=== PATIENT | male | born 1985 | race Hispanic/Latino ===

== ENCOUNTER 2020-01-31 11:10 | Emergency (ER) | payer SELFPAY ==
[2020-01-31 11:13] VITALS: BP 149/92; PULSE 86; RESP 20; TEMP 36.7; O2SAT 100
[2020-01-31 11:22] VITALS: BP 134/97; PULSE 83; RESP 17; O2SAT 96
[2020-01-31] MEDS: methylPREDNISolone SOD SUCC 125 MG VIAL IV PUSH (12:17)
--- NOTE | 2020-01-31 12:40 | ED.ALLEREA ---
HPI - Allergic Reaction General Chief complaint: Allergic Reaction Stated complaint: Possible allergic reaction Time Seen by Provider: 01/31/20 11:26 Source: patient Mode of arrival: ambulatory Limitations: no limitations History of Present Illness HPI narrative: Patient presents with chief complaint of wasp bite to the side of his neck. Patient states he was bitten by a bee before and had issues with anaphylaxis so he became concerned he may have the same symptoms and had his girlfriend bring him to the emergency department. Patient states that it first he was anxious and feels as if he was short of breath however he now feels better. He reports some swelling and itching to the site of the sting.Patient has not taking anything in route to the emergency department. 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 Patient denies any diaphoresis, shortness of breath, nausea, vomiting, diarrhea, changes in vision or hearing or any other symptoms. Related Data Home Medications Medication Instructions Recorded Confirmed No Home Medications 01/31/20 01/31/20 Allergies Allergy/AdvReac Type Severity Reaction Status Date / Time Bumble Bee Allergy Mild Unknown Uncoded 01/31/20 11:22 Wasp Allergy Mild Unknown Uncoded 01/31/20 11:22 Review of Systems Review of Systems: Narrative: CONSTITUTIONAL: Denies fever, chills, or sweats. EYES: Denies visual changes, redness, or discharge. ENT: Denies rhinorrhea, congestion, sore throat, or otalgia. CARDIOVASCULAR: Denies chest pain, palpitations, or edema. RESPIRATORY: Denies cough or dyspnea. GASTROINTESTINAL: Denies abdominal pain, nausea, vomiting, or diarrhea. GENITOURINARY: Denies dysuria or hematuria. SKIN: Reports rash or itching. MUSCULOSKELETAL: Denies back pain, joint pain, or myalgia. NEUROLOGIC: Denies headache, numbness, dizziness, or weakness. PSYCHIATRIC: Denies anxiety or depression. [facility] Past Medical History Medical History (Updated 01/31/20 @ 12:45 by Jp Guzmán PA-C) Bee sting allergy Social History Social History (Updated 01/31/20 @ 12:42 by Jp Guzmán PA-C) Other substance usage details: none Exam Narrative: Exam Narrative: GENERAL: Well-appearing, well-nourished, and in no acute distress. HEAD: Normocephalic, atraumatic. EYES: PERRLA and EOMI. ENT: Nares clear, no rhinorrhea or epistaxis. Mucous membranes moist. Oropharynx without tonsillar hypertrophy exudate or other lesions. Bilateral TMs pearly osei nonbulging. Airway is patent without signs of hives or erythema. NECK: Small erythematous area to the right side of the neck. No weeping or open wound noted. Supple. No adenopathy or masses. CHEST: Clear to auscultation. No respiratory distress. No wheezes rales or rhonchi HEART: Regular rate and rhythm. No murmur heard. Normal peripheral pulses. EXTREMITIES: Normal range of motion. No edema. SKIN: Warm, dry, no rash. NEURO: No focal deficits. Alert and oriented x3. PSYCH: Normal mood and affect. Course Vital Signs Vital signs: Vital Signs Temperature 98.0 F 01/31/20 11:13 Pulse Rate 86 01/31/20 11:13 Respiratory Rate 20 01/31/20 11:13 Blood Pressure 149/92 H 01/31/20 11:13 Pulse Oximetry 100 01/31/20 11:13 Temperature 98.0 F 01/31/20 11:13 Pulse Rate 83 01/31/20 11:22 Respiratory Rate 17 01/31/20 11:22 Blood Pressure 134/97 H 01/31/20 11:22 Pulse Oximetry 96 01/31/20 11:22 MDM - Allergic Reaction MDM Narrative Medical decision making narrative: Patient reports no shortness of breath or anaphylaxis. The swelling to the sting site has decreased. Discussed with the patient to take antihistamine such as Zyrtec or Benadryl as needed at home. Patient instructed to go to the pharmacy to refill his EpiPen. Patient to return to emergency department if he develops any emergent symptoms. Patient states he is ready to be discharged home at this time and
[2020-01-31 13:36] VITALS: BP 132/84; PULSE 88; RESP 12; O2SAT 100
== END 2020-01-31 13:00 | disposition home or self-care (01) ==
PROVIDERS: Emergency Provider Emergency Medicine
DX: T63.461A Toxic effect of venom of wasps, accidental (unintentional), initial encounter (principal)
CPT/HCPCS: 96374; 96375; 99284; J1200; J2930

== ENCOUNTER 2021-07-13 13:24 | Emergency (ER) | payer SELFPAY ==
[2021-07-13 14:09] VITALS: BP 135/81; PULSE 69; RESP 18; TEMP 36.5; O2SAT 100
--- NOTE | 2021-07-13 15:09 | ED.ALLEREA ---
HPI - Allergic Reaction General Chief complaint: Allergic Reaction Stated complaint: allergic reaction Time Seen by Provider: 07/13/21 14:39 Source: patient Mode of arrival: ambulatory Limitations: no limitations History of Present Illness HPI narrative: Patient is a 36-year-old male who presents for evaluation of a wasp sting to the right ankle. Patient states that he was working in the yard when the sting occurred. He did see the wasp on his ankle and was able to brush it off. He reports swelling and pain at the site. No bruising. No numbness. Patient has been ambulatory. He does report a soreness that is mild, aching in nature. Patient has a history of anaphylaxis and was without his epinephrine pen. He did go to the fire department who encouraged him to come to be evaluated. Patient reports mild lightheadedness and dizziness. No current shortness of breath or wheezing. No current hives, nausea or vomiting. Related Data Home Medications Medication Instructions Recorded Confirmed No Home Medications 01/31/20 01/31/20 Allergies Allergy/AdvReac Type Severity Reaction Status Date / Time Bumble Bee Allergy Mild Unknown Uncoded 07/13/21 14:27 Wasp Allergy Mild Unknown Uncoded 07/13/21 14:27 Review of Systems Review of Systems: CONSTITUTIONAL: Denies fever CARDIOVASCULAR: Denies chest pain RESPIRATORY: Denies cough or dyspnea. GASTROINTESTINAL: Denies abdominal pain SKIN: Denies rash, reports sting to right ankle MUSCULOSKELETAL: Denies back pain, reports right ankle pain NEUROLOGIC: Denies headache PMF Past Medical History Medical History Bee sting allergy Social History Social History (Updated 07/13/21 @ 15:12 by Jaja Hidalgo MD) Smoking status: Never smoker Alcohol intake: never Substance use: never Other substance usage details: none Living arrangements: with family Gender identity (if verbalized by the patient): Male Exam Narrative: GENERAL: Awake, alert, conversant HEAD: Normocephalic, atraumatic. EYES: PERRLA and EOMI. ENT: Nares clear, no rhinorrhea or epistaxis. Mucous membranes moist. NECK: Supple. CHEST: No respiratory distress, breathing even and non labored HEART: Regular rate, sinus rhythm ABDOMEN:Non distended, non tender EXTREMITIES: Normal range of motion. Mild edema in the right ankle. There is an envenomation site on the medial right ankle. Minimal erythema. Full range of motion without pain. Patient is ambulatory. SKIN: Warm, dry, no rash. NEURO:No focal deficits. Alert and oriented x3 Course Vital Signs Vital signs: Vital Signs Temperature 36.5 C 07/13/21 14:09 Pulse Rate 69 07/13/21 14:09 Respiratory Rate 18 07/13/21 14:09 Blood Pressure 135/81 07/13/21 14:09 Pulse Oximetry 100 07/13/21 14:09 Temperature 36.5 C 07/13/21 14:09 Pulse Rate 69 07/13/21 14:09 Respiratory Rate 18 07/13/21 14:09 Blood Pressure 135/81 07/13/21 14:09 Pulse Oximetry 100 07/13/21 14:09 MDM - Allergic Reaction MDM Narrative Medical decision making narrative: Patient presented for evaluation of the envenomation to the right ankle. At the time of assessment, ABCs are intact and vital signs are stable. No sign of significant anaphylaxis at the time of assessment. No respiratory symptoms. Patient is ambulatory without difficulty. He is neurovascularly intact and there is no sign of gross deformity or osseous injury to the right ankle or leg. Patient was given Decadron in route. When he got to the hospital, shared decision-making occurred and given the patient's history he was given intramuscular injection of epinephrine. He was also given famotidine and Benadryl. I did not image the joint as patient is ambulatory, low-dose concern for osseous injury given reported symptoms unwitnessed wasp. Patient was monitored and had no signs of rebound anaphylaxis. He was then discharged homeHelene Menjivar
[2021-07-13] MEDS: EPINEPHrine HCL INJ 1 MG/ML AMPUL 0.3 MG IM (15:16)
[2021-07-13] MEDS: diphenhydrAMINE HCl CAP 25 MG CAPSULE PO (15:17)
[2021-07-13] MEDS: FAMOTIDINE 20 MG TABLET PO (15:17)
[2021-07-13 15:58] VITALS: PULSE 98; RESP 18; O2SAT 99
== END 2021-07-13 15:59 | disposition home or self-care (01) ==
PROVIDERS: Emergency Provider Emergency Medicine
DX: T63.451A Toxic effect of venom of hornets, accidental (unintentional), initial encounter (principal); Z91.030 Bee allergy status
CPT/HCPCS: 96372; 99283; A9270; J0171

== ENCOUNTER 2022-01-11 02:15 | Emergency (ER) | payer SELFPAY ==
--- NOTE | ~2022-01-11 | CT_ITS ---
EXAMINATION: CT abdomen pelvis w con DATE: 01/11/2022 04:14 INDICATION: Right upper quadrant abdominal pain. TECHNIQUE: Spiral CT of the abdomen and pelvis was performed following intravenous injection of 100 m L Omnipaque 350. Axial, coronal and sagittal images of the abdomen and pelvis were reviewed. The do se-length product (DLP) for this examination was 470.13 mGy-cm. The exposure was tailored according to patient size (auto mA exposure control), and iterative reconstruction (ASIR) was used as additiona l dose reduction technique. There is no prior study for comparison. FINDINGS: There is nonspecific periportal edema. Gallbladder is mildly distended with indistinct gall bladder wall between the liver and the gallbladder, but other portions of the gallbladder wall appear unremarkable, no adjacent inflammation. Small amount of pericholecystic fluid not excludable. No onofre cified cholelithiasis and common bile duct is normal in caliber. Considerations include hepatitis, ac [place] or chronic cholecystitis. Spleen, adrenal glands and pancreas are unremarkable. There are 3 and 1 mm right calyceal stones. The re is also punctate 1 mm left calyceal stone. No obstructing ureteral stones. The prostate is unremar kable. Some diffuse bladder wall thickening, could indicate chronic cystitis. Acute cystitis not exc ludable. There is no retroperitoneal or pelvic lymphadenopathy. Small bilateral inguinal fat-contain ing hernias. The appendix is normal. The stomach and small bowel are unremarkable. There is expected amount of c olonic stool. No free intraperitoneal gas. The heart is normal in size. There are no pericardial or pleural effusions. The lung bases are unremarkable. There are no osteoblastic or osteolytic les ions identified. IMPRESSION: 1. Nonspecific periportal edema, ill-defined gallbladder liver interface. Some differential diagnosi s considerations include liver disease such as hepatitis, acute or chronic cholecystitis, cholangitis . Correlation could be made with liver enzymes, hepatitis panel, HIDA scan and/or ultrasound as indic ated clinically. 2. Bladder wall trabeculation and thickening could indicate chronic cystitis. 3. Small bilateral nephrolithiasis. Reviewed, dictated and finalized at location [facility] IMPRESSION: 1. Nonspecific periportal edema, ill-defined gallbladder liver interface. Some differential diagnosis considerations include liver disease such as hepatitis, acute or chronic cholecystitis, cholangitis. Correlation could be made with li daniel enzymes, hepatitis panel, HIDA scan and/or ultrasound as indicated clinical ly. 2. Bladder wall trabeculation and thickening could indicate chronic cystitis. 3. Small bilateral nephrolithiasis.
[2022-01-11] MEDS: MORPHINE SULFATE (*CRX) 4 MG/ML INJ IV PUSH ×2 (02:33→06:37)
[2022-01-11] MEDS: ONDANSETRON INJ 4 MG/2 ML VIAL IV PUSH (02:33)
--- NOTE | 2022-01-11 03:33 | PC.NURSE ---
Assumed care of patient at 03:10. Handoff received from Юлия QUINTANILLA. Refer to downtime paperwork for care prior to 03:20.
[2022-01-11 03:41] VITALS: BP 160/95; PULSE 72; RESP 16; TEMP 36.6; O2SAT 99
--- NOTE | 2022-01-11 03:41 | ED.ABDPAIN ---
HPI - Abdominal Pain General Chief Complaint: Abdominal Pain <Atilio Corea MD - Last Filed: 01/11/22 06:25> History of Present Illness HPI narrative: Patient is a 36-year-old male who presents ER with sudden onset right upper quadrant abdominal pain. She has a prolonged symptomatic is back. Associate with nausea and vomiting. No improvement with sitting in the shower. Has not had similar symptoms before. Denies fevers or chills or sweats. No urinary symptoms. <Atilio Corea MD - Last Filed: 01/11/22 06:25> Related Data Allergies/Adverse Reactions: Allergies Allergy/AdvReac Type Severity Reaction Status Date / Time No Known Allergies Allergy Verified 01/11/22 03:39 <Atilio Corea MD - Last Filed: 01/11/22 06:25> Review of Systems Review of Systems: All systems reviewed & are unremarkable except as noted in HPI and below <Atilio Corea MD - Last Filed: 01/11/22 06:25> Constitutional: Constitutional: Denies chills, Denies fever(s) and Denies weakness <Atilio Corea MD - Last Filed: 01/11/22 06:25> Cardiovascular: Cardiovascular: Denies chest pain and Denies radiating jaw, neck or arm pain <Atilio Corea MD - Last Filed: 01/11/22 06:25> Gastrointestinal: Gastrointestinal: Reports abdominal pain, Denies diarrhea, Reports nausea and Reports vomiting <Atilio Corea MD - Last Filed: 01/11/22 06:25> Genitourinary: Genitourinary: Denies hematuria, Denies dysuria and Denies urinary frequency <Atilio Corea MD - Last Filed: 01/11/22 06:25> PMFSH Past Medical History Medical History: Medical History (Updated 01/11/22 @ 06:25 by Atilio Corea MD) Healthy adult male <Atilio Corea MD - Last Filed: 01/11/22 06:25> Surgical History Surgical History: Surgical History (Updated 01/11/22 @ 03:42 by Atilio Corea MD) History of surgery on arm <Atilio Corea MD - Last Filed: 01/11/22 06:25> Social History Social History: Social History (Updated 01/11/22 @ 03:42 by Atilio Corea MD) Smoking status: Never smoker <Atilio Corea MD - Last Filed: 01/11/22 06:25> Exam Narrative: GENERAL: Uncomfortable-appearing, well-nourished, and in mild distress. HEAD: Normocephalic, atraumatic. ENT: Mucous membranes moist. CHEST: Clear to auscultation. No respiratory distress. HEART: Regular rate and rhythm. Normal peripheral pulses. ABDOMEN: Soft, tender palpation right upper quadrant with guarding, nondistended. EXTREMITIES: Normal range of motion. No edema. SKIN: Warm, dry, no rash. NEURO: Alert and oriented x3. PSYCH: Normal mood and affect. <Atilio Corea MD - Last Filed: 01/11/22 06:25> Course Course Emergency Course: Patient still with right upper quadrant tenderness with guarding. Discussed case with general surgery to consult. Will arrange for HIDA. Admit to hospitalist service. <Atilio Corea MD - Last Filed: 01/11/22 06:25> Just prior to admission patient was evaluated by Dr. Rivera general surgery patient reported his pain is feeling much improved and he would like to try and manage his symptoms at home. General surgery is comfortable with the outpatient plan recommend outpatient imaging antibiotics and pain control. Patient was given return precautions. Patient is given an order and contact information to set up his outpatient HIDA and right upper quadrant ultrasound. <Param Flor MD - Last Filed: 01/11/22 08:24> Vital Signs Vital signs: Vital Signs Temperature 36.6 C 01/11/22 03:41 Pulse Rate 72 01/11/22 03:41 Respiratory Rate 16 01/11/22 03:41 Blood Pressure 160/95 H 01/11/22 03:41 Pulse Oximetry 99 01/11/22 03:41 Temperature 36.6 C 01/11/22 06:10 Pulse Rate 58 L 01/11/22 06:10 Respiratory Rate 18 01/11/22 06:10 Blood Pressure 156/100 H 01/11/22 06:10 Pulse Oximetry 99 01/11/22 06:10 <Atilio Corea MD - Last Filed: 01/11/22 06:25>
[2022-01-11 03:56] LABS: Alanine Aminotransferase 13 U/L (4-50); Albumin Level 4.3 g/dL (3.5-5.1); Alkaline Phosphatase 73 U/L (38-126); Anion Gap 7 mmol/L (8-16); Aspartate Amino Transferase 28 U/L (17-59); Bilirubin,Total 0.2 mg/dL (0.2-1.3); Blood Urea Nitrogen 12 mg/dL (9-20); Calcium 9.2 mg/dL (8.4-10.2); Carbon Dioxide 28 mmol/L (22-30); Chloride 104 mmol/L (98-107); Estimated Glomerular Filt Rate > 60; Glucose 131 mg/dL (65-110); Lipase 84 U/L (23-300); Potassium 3.3 mmol/L (3.4-5.0); Sodium 139 mmol/L (137-145)
[2022-01-11 04:09] LABS: Hematocrit 43.3 % (42.0-52.0); Hemoglobin 14.2 g/dL (14.0-18.0); Mean Corpuscular HGB Conc 32.8 g/dl (32-36); Mean Corpuscular Hemoglobin 27.7 pg (26-34); Mean Corpuscular Volume 84.6 fl (80-100); Mean Platelet Volume 10.9 fl (7.4-10.4); Platelet Count Result 264 k/mm3 (150-375); Red Blood Count 5.12 M/mm3 (4.6-6.20); Red Cell Distribution Width 13.8 % (11.5-14.5); White Blood Count 12.6 K/mm3 (4.5-10.0)
[2022-01-11 06:10] VITALS: BP 156/100; PULSE 58; RESP 18; TEMP 36.6; O2SAT 99
--- NOTE | 2022-01-11 07:26 | PC.NURSE ---
spoke with NM states pt. has to be off pain medication and NPO until 1230. states pt. can have IVBP Tylenol
--- NOTE | 2022-01-11 08:00 | PC.NURSE ---
unable to Chart pt. VS. VS as follows 98 HR, 14 RR, 98% pulse oxygen, 148/88 BP
--- NOTE | 2022-01-11 08:43 | PM.CNGS ---
Assessment and Plan Assessment and plan (1) Acute cholecystitis: Code(s): K81.0 - Acute cholecystitis Status: Acute Assessment and Plan: exam benign, symptoms resolved, home c po abx, analgesia, will need RUQ U/S and HIDA for further workup as outpt, low fat diet, f/u as outpt after testing History of Present Illness Consult details Consult date: 01/11/22 Reason for consult: abdominal pain Requesting physician: Atilio Corea MD Narrative: The patient is a 36-year-old male presenting to the emergency department complaining of severe right upper quadrant, epigastric abdominal pain. Pt reorts the pain has been ongoing for the last few days, however acutely worsened last night. The patient reports associated nausea, anorexia, diarrhea. The patient reports before the last few days he has never experienced these symptoms before. The patient reports that the symptoms are exacerbated by eating. Upon seeing the patient in the emergency department, he has received pain medication and reports his symptoms are largely resolved at this time. Review of Systems Review of Systems: All systems reviewed & are unremarkable except as noted in HPI and below Constitutional: Constitutional: Reports anorexia, Denies body ache(s), Denies chills, Reports fatigue, Denies fever(s), Denies increased appetite, Denies lethargy, Reports poor appetite, Denies weakness, Denies weight gain and Denies weight loss Eyes: Eyes: Reports no additional eye complaints ENT: Reports system reviewed and no additional complaints, except as documented Cardiovascular: Cardiovascular: Reports no additional cardiovascular complaints Respiratory: Respiratory: Reports no additional respiratory complaints Gastrointestinal: Gastrointestinal: Reports as per HPI, Reports abdominal pain, Reports bloating, Reports GI cramping, Reports early satiety, Reports diarrhea, Reports nausea and Denies vomiting Genitourinary: Genitourinary: Reports no additional male genitourinary complaints Musculoskeletal: Musculoskeletal: Reports no additional musculoskeletal complaints Integumentary/Breasts: Skin/Breast: Reports system reviewed and no additional complaints, except as docu Neurologic: Reports system reviewed and no additional complaints, except as documented Psychiatric: Psychiatric: Reports no additional psychiatric complaints Endocrine: Endocrine: Reports no additional endocrine complaints Hematologic/Lymphatic: Hematologic/Lymphatic: Reports no additional hematologic/lymphatic complaints Allergic/Immunologic: Allergic/Immunologic: Reports no additional allergic/immunologic complaints PMFSH Past Medical History Medical History Healthy adult male Surgical History Surgical History History of surgery on arm Social History Social History Smoking status: Never smoker Comments FH - pt denies any known biliary dz Meds Home Medications and Allergies Home Medications Medication Instructions Recorded Confirmed Type ciprofloxacin HCl 750 mg PO Q12H 10 Days #20 tablet 01/11/22 Rx oxycodone-acetaminophen 1 tablet PO Q4H PRN #10 tablet 01/11/22 Rx Allergies Allergy/AdvReac Type Severity Reaction Status Date / Time No Known Allergies Allergy Verified 01/11/22 03:39 Vital Signs Vital Signs - 24 hr 01/11/22 03:41 01/11/22 06:10 Temperature 36.6 C 36.6 C Pulse Rate 72 58 L Respiratory Rate 16 18 Blood Pressure 160/95 H 156/100 H Pulse Oximetry 99 99 Exam Const: General: cooperative, comfortable and no acute distress Nutritional Appearance: average body habitus Orientation/consciousness: patient oriented x3 Limitations: no limitations HENMT: Head: normal to inspection, normocephalic and atraumatic Ears: hearing grossly normal bilaterally General nose exam: Normal exter
== END 2022-01-11 08:18 | disposition home or self-care (01) ==
PROVIDERS: Emergency Provider Emergency Medicine
DX: K81.0 Acute cholecystitis (principal)
CPT/HCPCS: 36415; 74177; 80053; 83690; 85027; 96374; 96375; 96376; 99284; J2270; J2405; Q9967

== ENCOUNTER 2022-12-27 02:49 | Observation (INO) | payer BC, SELFPAY ==
[2022-12-27] VITALS (8 sets, daily range): BP systolic 115–181; BP diastolic 62–93; PULSE 58–83; RESP 16–20; TEMP 36.2–36.8; O2SAT 98–100; BMI 24.9
--- NOTE | ~2022-12-27 | NM_ITS ---
EXAMINATION: NM hepatobiliary w pharm DATE: 12/27/2022 14:58 INDICATION: Right upper quadrant abdominal pain COMPARISON: CT abdomen pelvis and right upper quadrant ultrasound TECHNIQUE: 5.077 mCi Tc-99m mebrofenin (Choletec) was administered intravenously. Scintigraphic imag es of the abdomen were obtained for one hour. 2 mg of morphine was administered by slow IV push and s cintigrams were obtained from an additional 30 minutes. FINDINGS: There is normal clearance of radiotracer from the blood pool. There is homogeneous tracer uptake by t he liver. Activity progresses to the common bile duct by 10 minutes and with small bowel activity ev ident at 15 minutes and increasing over the following 60 minutes. Following morphine injection there is additional accumulation of small bowel activity but no evident filling of the gallbladder which al aneta with findings on prior CT and ultrasound would be consistent with acute cholecystitis. There is s ome reflux of activity into the stomach, small portion of which occurred during the first 30 minutes and the majority the interval prior to the morphine administration. IMPRESSION: 1. No excessive activity into the gallbladder which along with findings on prior ultrasound and CT w ould be consistent with acute cholecystitis. Reviewed, dictated and finalized at location A. O VISUAL ENGINEER IMPRESSION: 1. No excessive activity into the gallbladder which along with findings on hilaria or ultrasound and CT would be consistent with acute cholecystitis.
--- NOTE | ~2022-12-27 | US_ITS ---
Limited Abdominal Sonogram: Real-time sonographic imaging of the right upper quadrant was performed. Clinical History: Right upper quadrant pain Findings: The liver appears normal with no evidence of mass lesion or bile duct dilatation. Main por nils vein demonstrates normal direction of flow. The gallbladder is partially distended, and contains echogenic, shadowing gallstones.. Gallbladder wall is minimally thickened at 4 mm. The common bile du ct measures 5 mm. The visualized pancreas, aorta, and IVC are unremarkable. Impression: Cholelithiasis. Minimal gallbladder wall thickening is present, but there is negative sonographic Laguna's sign. Cons ider HIDA scan to further evaluate for acute cholecystitis, as indicated. Reviewed, dictated and finalized at location . MAKER Impression: Cholelithiasis. Minimal gallbladder wall thickening is present, but there is negative sonograph ic Laguna's sign. Consider HIDA scan to further evaluate for acute cholecystiti s, as indicated.
--- NOTE | ~2022-12-27 | CT_ITS ---
CT Abdomen and Pelvis with contrast. History: Abdominal pain. Spiral CT of the abdomen and pelvis was performed after the administration of intravenous contrast. 1 00 cc of Omnipaque 350 was administered intravenously without complication. Dose reduction technique was used on this scan by utilizing automated exposure control and iterative reconstruction technique. The dose-length product (DLP) was 350.11 mGy-cm. COMPARISON: 01/11/2022 Findings: Scans through the lung bases demonstrate mild atelectatic change. The liver, spleen, pancreas, adrenals and kidneys are within normal limits. There is mild gallbladder wall thickening, nonspecific. No evidence of aortic aneurysm. No lymphadenopathy is seen. There is no evidence of bowel obstruction. There is no evidence to suggest acute appendicitis or dive rticulitis. Images through the pelvis were performed. Probable urinary bladder wall thickening noted, especially along the right side. Prostate gland and seminal vesicles are unremarkable. No ascites is seen. Stable calcified or ossified lesion within the spinal canal at the L1 level (axial images 46-49). Impression: Mild gallbladder wall thickening, nonspecific. Urinary bladder wall thickening, especially along the right side, essentially stable from prior exam. Given stability, this could indicate chronic cystitis or other chronic inflammatory process. Neoplas m unlikely given patient age. Stable densely calcified or ossified lesion within the spinal canal at the L1 level. This is also pre sumably benign given stability over time. Additional workup can be pursued if indicated. Reviewed, dictated and finalized at location M. NG SEWER Impression: Mild gallbladder wall thickening, nonspecific. Urinary bladder wall thickening, especially along the right side, essentially s table from prior exam. Given stability, this could indicate chronic cystitis or other chronic inflammatory process. Neoplasm unlikely given patient age. Stable densely calcified or ossified lesion within the spinal canal at the L1 l evel. This is also presumably benign given stability over time. Additional work up can be pursued if indicated.
[2022-12-27] MEDS: MORPHINE SULFATE (*CRX) 4 MG/ML INJ IV PUSH ×3 (04:11→19:50)
[2022-12-27 04:13] LABS: Basophils Absolute Auto 0.1 K/mm3 (0.0-0.1); Basophils Percent Auto 0.6 % (0.2-1.2); Eosinophils Absolute Auto 0.5 K/mm3 (0-0.3); Eosinophils Percent Auto 3.1 % (0-4.4); Hematocrit 46.9 % (42.0-52.0); Hemoglobin 14.7 g/dL (14.0-18.0); Immature Granulocyte Absolute 0.08 K/mm3 (0.00-0.031); Immature Granulocyte Percent A 0.5 % (0-0.5); Lymphocytes Percent Auto 14.2 % (18.3-44.2); Mean Corpuscular HGB Conc 31.3 g/dl (32-36); Mean Corpuscular Hemoglobin 27.1 pg (26-34); Mean Corpuscular Volume 86.5 fl (80-100); Mean Platelet Volume 10.1 fl (7.4-10.4); Monocytes Absolute Auto 1.1 K/mm3 (0.1-0.6); Monocytes Percent Auto 6.9 % (2.6-8.5); Neutrophils Absolute Auto 11.5 K/mm3 (1.3-6.7); Neutrophils Percent Auto 74.7 % (45.5-73.1); Platelet Count Result 335 k/mm3 (150-375); Red Blood Count 5.42 M/mm3 (4.6-6.20); Red Cell Distribution Width 14.5 % (11.5-14.5); White Blood Count 15.5 K/mm3 (4.5-10.0)
[2022-12-27] MEDS: METOCLOPRAMIDE HCL INJ 10 MG/2 ML VIAL IV PUSH (04:14)
[2022-12-27] MEDS: diphenhydrAMINE HCl INJ 50 MG/ML VIAL 25 MG IV PUSH (04:15)
[2022-12-27 04:24] LABS: Alanine Aminotransferase 14 U/L (6-50); Albumin Level 4.1 g/dL (3.5-5.1); Alkaline Phosphatase 76 U/L (38-126); Anion Gap 5 mmol/L (8-16); Aspartate Amino Transferase 25 U/L (17-59); Bilirubin,Total 0.3 mg/dL (0.2-1.3); Blood Urea Nitrogen 20 mg/dL (9-20); Calcium 8.7 mg/dL (8.4-10.2); Carbon Dioxide 34 mmol/L (22-30); Chloride 102 mmol/L (98-107); Estimated CRCL calculation 84 ml/min; Estimated Glomerular Filt Rate > 60; Glucose 119 mg/dL (65-110); Lipase 196 U/L (23-300); Potassium 3.7 mmol/L (3.4-5.0); Sodium 141 mmol/L (137-145)
[2022-12-27 04:25] LABS: Appearance Urine Clear (Clear); Bilirubin Urine Negative (Negative); Blood Urine Negative (Negative); Color Urine Yellow (Yellow); Glucose Urine UA Negative (Negative); Ketones Urine Negative (Negative); Leukocyte Esterase Ur Negative LEU/UL (Negative); Nitrate Urine Negative (Negative); Protein Urine Negative (Negative); Specific Grav Ur 1.025 (1.001-1.035); Urobilinogen Urine 0.2 mg/dL (<2.0)
[2022-12-27 04:45] LABS: Add Urine Microscopic? NO
--- NOTE | 2022-12-27 07:15 | ED.ABDPAIN ---
HPI - Abdominal Pain General Chief Complaint: Abdominal Pain <Janna Iniguez MD - Last Filed: 12/28/22 12:35> Stated Complaint: vomiting <Janna Iniguez MD - Last Filed: 12/28/22 12:35> Time Seen by Provider: 12/27/22 03:36 <Janna Iniguez MD - Last Filed: 12/28/22 12:35> History of Present Illness HPI narrative: Patient states that last night he has been having right upper quadrant pain, he has had symptoms like this in the past, he had declined surgery in the past. Also reports nausea <Janna Iniguez MD - Last Filed: 12/28/22 12:35> Related Data Home Medications: Home Medications Medication Instructions Recorded Confirmed No Home Medications 01/31/20 12/27/22 <Janna Iniguez MD - Last Filed: 12/28/22 12:35> Allergies/Adverse Reactions: Allergies Allergy/AdvReac Type Severity Reaction Status Date / Time Bumble Bee Allergy Mild Unknown Uncoded 12/27/22 15:31 Wasp Allergy Mild Unknown Uncoded 12/27/22 15:31 <Janna Iniguez MD - Last Filed: 12/28/22 12:35> Review of Systems Review of Systems: CONST: No fever. HEENT: No sore throat C/V: No chest pain RESP: No cough GI: Reports abdominal pain, nausea, vomiting : No dysuria. M/S: No joint pain. SKIN: No rash. NEURO: [No headache or focal numbness or weakness] PSYCH: [No depression] <Janna Iniguez MD - Last Filed: 12/28/22 12:35> [facility] Past Medical History Medical History: Medical History (Updated 12/27/22 @ 21:14 by Shasha Rutledge PA-C) Bee sting allergy <Janna Iniguez MD - Last Filed: 12/28/22 12:35> Surgical History Surgical History: Surgical History History of surgery on arm (04/2012) Repair of a large left forearm laceration including ulnar nerve and muscle fascia repair per Dr. Greene. <Janna Iniguez MD - Last Filed: 12/28/22 12:35> Family History Family History: Family History Other Unknown family medical history <Janna Iniguez MD - Last Filed: 12/28/22 12:35> Social History Social History: Social History (Updated 12/27/22 @ 21:13 by Shasha Rutledge PA-C) Social History: Surrogate medical decision maker: Cheryl Bernal, mother. Code status: Full code. Smoking status: Current every day smoker Tobacco type: cigarettes Second hand tobacco smoke exposure: No Alcohol intake: never Substance use: current Substance use type: marijuana Last use: 12/26/22 Lack of Transportation: No Lack of Food: Never True Current Housing: I Have Housing Concerned About Future Housing: No Difficulty Paying Gas/Electric Bills: No Difficulty Paying for Meds: No Currently Unemployed: No Education: High School Diploma/GED Difficulty w/ Childcare or Family Care: No Spiritual care concerns: No <Janna Iniguez MD - Last Filed: 12/28/22 12:35> Exam Narrative: EXAMINATION OF ORGAN SYSTEMS/BODY AREAS: Constitutional: Vital signs per nursing GENERAL:[No acute distress, non-toxic appearing.] HEAD: Normal with no signs of head trauma. EYES: EOMI, conjunctiva normal ENT: Hearing grossly intact LUNGS: Nonlabored breathing. HEART: [Regular rate and rhythm] ABD: [Soft], [tender to palpation RUQ] EXT: Normal range of motion SKIN: [No rashes or lesions.] NEURO: [Alert and oriented x 3. No gross focal sensory or strength deficits.] PSYCH: Normal affect <Janna Iniguez MD - Last Filed: 12/28/22 12:35> Course Course Emergency Course: Persistent right upper quadrant abdominal pain on exam. Given imaging findings patient will be admitted to hospitalist service for HIDA scan to further evaluate for cholecystitis. Patient be kept n.p.o. He is aware of diagnosis and treatment plan. <Atilio Corea MD - Last Filed: 12/27/22 11:48> Vital Signs Vital signs: Vital Signs Temperature 98.3 F 12/27/22 02:52 Pulse Rate 62 12/27/22 02:52 Respira
--- NOTE | 2022-12-27 09:00 | PC.NURSE ---
Nuclear medicine called and they stated do not give this patient any medications and make this patient NPO until after his test
[2022-12-27 10:46] LABS: Influenza A QL RT-PCR Negative (Negative); Influenza B QL RT-PCR Negative (Negative); SARS-CoV-2 RNA PCR Negative
--- NOTE | 2022-12-27 12:11 | PC.NURSE ---
Pt to nuclear medicine
--- NOTE | 2022-12-27 13:30 | PM.IMHP ---
H&P: HPI History of Present Illness Date/Time: 12/27/22 13:30 Chief Complaint: Abdominal pain. Narrative: This is a very pleasant, previously healthy 37-year-old male who presented to the emergency department from home for evaluation of abdominal pain. Patient provides the following history. Last evening he had some Czech fries with dinner and as the evening progressed he developed a squeezing pain in the right upper quadrant radiating somewhat through to the back associated with feelings of bloating, nausea, and several episodes of emesis. He has had similar symptoms in the past, typically with fatty or fried foods, but he has only had such severe pain on a couple of occasions. He was given a dose of morphine and metoclopramide in the emergency department his pain has drastically improved. He denies fever, chills, sweats, hematemesis, diarrhea, melena, and hematochezia. No chest pain or shortness of breath. He has been afebrile since arrival to the hospital with stable vital signs. Pertinent labs included WBC of 15.5 and normal LFTs and lipase. CT of the abdomen pelvis showed mild gallbladder wall thickening and other chronic findings. HIDA scan is consistent with acute cholecystitis. He is being admitted in this setting for pain control, antibiotics, and surgery consult. Review of Systems Review of Systems: Twelve systems were reviewed and are negative except for as per HPI. [facility], LATER [facility] Past Medical History Medical History (Updated 12/27/22 @ 21:14 by Shasha Rutledge PA-C) Bee sting allergy Surgical History Surgical History History of surgery on arm (04/2012) Repair of a large left forearm laceration including ulnar nerve and muscle fascia repair per Dr. Greene. Family History Family History Other Unknown family medical history Social History Social History (Updated 12/27/22 @ 21:13 by Shasha Rutledge PA-C) Social History: Surrogate medical decision maker: Cheryl Bernal, mother. Code status: Full code. Smoking status: Current every day smoker Tobacco type: cigarettes Second hand tobacco smoke exposure: No Alcohol intake: never Substance use: current Substance use type: marijuana Last use: 12/26/22 Lack of Transportation: No Lack of Food: Never True Current Housing: I Have Housing Concerned About Future Housing: No Difficulty Paying Gas/Electric Bills: No Difficulty Paying for Meds: No Currently Unemployed: No Education: High School Diploma/GED Difficulty w/ Childcare or Family Care: No Spiritual care concerns: No Meds Home Medications and Allergies Home Medications Medication Instructions Recorded Confirmed Type No Home Medications 01/31/20 12/27/22 History Allergies Allergy/AdvReac Type Severity Reaction Status Date / Time Bumble Bee Allergy Mild Unknown Uncoded 12/27/22 15:31 Wasp Allergy Mild Unknown Uncoded 12/27/22 15:31 Vital Signs Vital Signs - 24 hr 12/27/22 02:52 12/27/22 05:49 12/27/22 05:52 Temperature 98.3 F Pulse Rate 62 67 Respiratory Rate 20 16 Blood Pressure 181/90 H 146/93 H Pulse Oximetry 98 100 Oxygen Delivery Room Air 12/27/22 11:25 Temperature Pulse Rate 83 Respiratory Rate 18 Blood Pressure 136/86 Pulse Oximetry 99 Oxygen Delivery Exam Narrative: General: Mildly ill-appearing male supine in bed. Weight: 65.8 kg. BMI: 24.9. HEENT: PERRL, EOMI. Sclera anicteric. Tacky mucous membranes. Neck: Supple. Respiratory: Lungs are clear to auscultation bilaterally. Cardiovascular: Regular rate and rhythm with S1-S2. Gastrointestinal: Abdomen is soft and nondistended with positive bowel sounds. He is tender to palpation the right upper quadrant. Skin: Warm and dry. No rash or lesions on limited exam. Extremities: No cyanosis, clubbing, or edema. Radial and pedal pulses intact. Neurologic
[2022-12-27] MEDS: MORPHINE SULFATE (*CRX) 2 MG/ML INJ IV PUSH ×2 (14:55→23:23)
--- NOTE | 2022-12-27 15:20 | ADMGEN ---
This patient, Clinton Bernal, was admitted to Medical Room 243-01. Patient/family oriented to hospital policies and general routines including ID bracelet, bed and alarms, visiting hours, pain management, procedures, bathroom and other care routines, personal items, smoking policy, room service/diet, and visiting hours. Information on how to activate the Rapid Response Team has been discussed. Patient/Family are encouraged to report perceived risks to care and to ask questions if they do not understand what they are told or what they should do.
--- NOTE | 2022-12-27 15:25 | WPDGICN ---
Assessment and Plan Assessment and plan (1) Right upper quadrant abdominal pain: Code(s): R10.11 - Right upper quadrant pain Status: Acute Assessment and Plan: this is consistent with GB disease, most likely cholecystitis- pending hida scan will ask surgery to evaluate noted normal bile duct size and also normal liver enzymes (2) Nausea and vomiting in adult: Code(s): R11.2 - Nausea with vomiting, unspecified Status: Acute Assessment and Plan: npo for now antiemetics prn (3) Acute cholecystitis: Code(s): K81.0 - Acute cholecystitis Status: Acute Assessment and Plan: surgery to see (4) Cholelithiasis: Code(s): K80.20 - Calculus of gallbladder without cholecystitis without obstruction Status: Acute (5) Leukocytosis: Code(s): D72.829 - Elevated white blood cell count, unspecified Status: Acute GI Consult Note Consult date/time: 12/27/22 15:25 Reason for consult: n/v, ruq pain, cholelithiasis HPI: Clinton Bernal is a 37 year old male with previous history of cholelithiasis who came to the emergency department complaining of severe right upper quadrant with epigastric abdominal pain along with nausea and vomiting, this started after ate estonian fries. He had similar episode about 1 year ago, evaluated by surgery after found to have cholelithiasis and advised to have HIDA scan and return for follow-up but he did not. He says that after changed his diet was better most of the year until now. CT scan showed cholelithiasis and GB wall thickening. Finally he just had HIDA scan which is pending. Review of Systems Constitutional: Constitutional: Denies body ache(s) Eyes: Eyes: Denies blurry vision ENT: Reports Normal hearing present Cardiovascular: Cardiovascular: Denies chest pain Respiratory: Respiratory: Denies cough Gastrointestinal: Gastrointestinal: Reports abdominal pain, Reports nausea and Reports vomiting Genitourinary: Genitourinary: Denies hematuria Musculoskeletal: Musculoskeletal: Denies myalgias Integumentary/Breasts: Skin/Breast: Denies rash Neurologic: Denies Abnormal speech present Psychiatric: Psychiatric: Denies anxiety [facility] Past Medical History Medical History (Updated 12/27/22 @ 15:30 by Chriss Tilley MD) Bee sting allergy Leukocytosis Nausea and vomiting in adult Surgical History Surgical History (Updated 12/27/22 @ 13:16 by Shasha Rutledge PA-C) History of surgery on arm (04/2012) Repair of a large left forearm laceration including ulnar nerve and muscle fascia repair per Dr. Greene. Social History Social History (Updated 12/27/22 @ 13:16 by Shasha Rutledge PA-C) Social History: Surrogate medical decision maker: Code status: Full code. Alcohol intake: never Substance use: never Other substance usage details: none Meds Home Medications and Allergies Home Medications Medication Instructions Recorded Confirmed Type No Home Medications 01/31/20 01/31/20 History ciprofloxacin HCl 750 mg tablet 750 mg PO Q12H 10 days #20 tabs 01/11/22 Rx oxycodone-acetaminophen 5 mg-325 1 tablet PO Q4H PRN pain #10 tabs 01/11/22 Rx mg tablet Allergies Allergy/AdvReac Type Severity Reaction Status Date / Time Bumble Bee Allergy Mild Unknown Uncoded 12/27/22 15:31 Wasp Allergy Mild Unknown Uncoded 12/27/22 15:31 Vital Signs Vital Signs - 24 hr 12/27/22 02:52 12/27/22 05:49 12/27/22 05:52 Temperature 98.3 F Pulse Rate 62 67 Respiratory Rate 20 16 Blood Pressure 181/90 H 146/93 H Pulse Oximetry 98 100 Oxygen Delivery Room Air 12/27/22 11:25 Temperature Pulse Rate 83 Respiratory Rate 18 Blood Pressure 136/86 Pulse Oximetry 99 Oxygen Delivery Exam Const: General: no acute distress HENMT: Face/Nose/Sinus: Normal nares present Eyes: Sclera: sclerae normal Neck: Neck: supple Resp: Auscultation: clear to auscultation
[2022-12-27] MEDS: SODIUM CHLORIDE 0.9% IV 1,000 ML 125 ML IV CONT ×2 (16:05→23:23)
[2022-12-27] MEDS: ONDANSETRON INJ 4 MG/2 ML VIAL IV PUSH ×2 (16:07→23:23)
--- NOTE | 2022-12-27 18:07 | WPDCN ---
Assessment and Plan Assessment and plan (1) Acute cholecystitis due to biliary calculus: Code(s): K80.00 - Calculus of gallbladder with acute cholecystitis without obstruction Status: Acute Assessment and Plan: Patient has been admitted to the medical service with acute cholecystitis secondary to cholelithiasis. She has been started on IV antibiotics and will keep him NPO except for some ice chips this evening. Will repeat his labs in the morning and if appropriate he could possibly have a laparoscopic cholecystectomy possible open cholecystectomy tomorrow. HPI Data of Consult Date/Time: 12/27/22 18:07 Requesting Physician: Joe Coon MD Primary Care Provider: CROCHETER HAND PHYSICIAN Consult Narrative Reason for consult: Acute cholecystitis secondary to cholelithiasis Narrative: Clinton Bernal is a 37 year old male who has had about a 1 year history of intermittent right upper quadrant abdominal pain sometimes associated with eating. He had stayed on a low-fat diet and reduce his symptoms but last evening he ate some Finnish fries and had severe pain in the right upper quadrant. He denies any nausea vomiting. He has been having some loose stools after eating and abdominal bloating after eating. Workup in emergency [place] [id number]. Liver enzymes are normal. CT scan abdomen pelvis showed distended gallbladder with some mild gallbladder wall thickening. Abdominal ultrasound showed mild thickening of the gallbladder wall to 4mm and gallstones. HIDA scan was performed showing no filling of the gallbladder [id number]. This is all consistent with acute cholecystitis radiographically. Review of Systems Review of Systems: The remainder of the review of systems to include constitutional, HEENT, cardiovascular, respiratory, GI, , integumentary, musculoskeletal, endocrine, immunologic, hematologic, psychiatric, and neurologic are all negative except for which is mentioned above in the HPI. [facility] Past Medical History Medical History Bee sting allergy Leukocytosis Nausea and vomiting in adult Surgical History Surgical History History of surgery on arm (04/2012) Repair of a large left forearm laceration including ulnar nerve and muscle fascia repair per Dr. Greene. Family History Family History Other Unknown family medical history Social History Social History Social History: Surrogate medical decision maker: Code status: Full code. Smoking status: Current every day smoker Tobacco type: cigarettes Second hand tobacco smoke exposure: No Alcohol intake: never Substance use: current Substance use type: marijuana Last use: 12/26/22 Lack of Transportation: No Lack of Food: Never True Current Housing: I Have Housing Concerned About Future Housing: No Difficulty Paying Gas/Electric Bills: No Difficulty Paying for Meds: No Currently Unemployed: No Education: High School Diploma/GED Difficulty w/ Childcare or Family Care: No Spiritual care concerns: No Meds Home Medications and Allergies Home Medications Medication Instructions Recorded Confirmed Type No Home Medications 01/31/20 12/27/22 History Allergies Allergy/AdvReac Type Severity Reaction Status Date / Time Bumble Bee Allergy Mild Unknown Uncoded 12/27/22 15:31 Wasp Allergy Mild Unknown Uncoded 12/27/22 15:31 Vital Signs Vital Signs - 24 hr 12/27/22 02:52 12/27/22 05:49 12/27/22 05:52 Temperature 36.8 C Pulse Rate 62 67 Respiratory Rate 20 16 Blood Pressure 181/90 H 146/93 H Pulse Oximetry 98 100 Oxygen Delivery Room Air 12/27/22 11:25 12/27/22 15:20 Temperature 36.2 C L Pulse Rate 83 70 Respiratory Rate 18 18 Bl
[2022-12-28 03:56] VITALS: BP 120/66; PULSE 78; RESP 17; TEMP 36.7; O2SAT 100
[2022-12-28] MEDS: MORPHINE SULFATE (*CRX) 2 MG/ML INJ IV PUSH ×2 (05:10→07:59)
[2022-12-28] MEDS: ONDANSETRON INJ 4 MG/2 ML VIAL IV PUSH (05:11)
[2022-12-28 05:43] LABS: Basophils Absolute Auto 0.1 K/mm3 (0.0-0.1); Eosinophils Absolute Auto 0.4 K/mm3 (0-0.3); Hematocrit 41.2 % (42.0-52.0); Hemoglobin 12.7 g/dL (14.0-18.0); Immature Granulocyte Absolute 0.02 K/mm3 (0.00-0.031); Immature Granulocyte Percent A 0.3 % (0-0.5); Lymphocytes Absolute Auto 2.13 K/mm3 (0.9-3.2); Lymphocytes Percent Auto 30.6 % (18.3-44.2); Mean Corpuscular HGB Conc 30.8 g/dl (32-36); Mean Corpuscular Hemoglobin 26.9 pg (26-34); Mean Corpuscular Volume 87.3 fl (80-100); Mean Platelet Volume 9.9 fl (7.4-10.4); Monocytes Absolute Auto 0.5 K/mm3 (0.1-0.6); Monocytes Percent Auto 7.5 % (2.6-8.5); Neutrophils Absolute Auto 3.8 K/mm3 (1.3-6.7); Neutrophils Percent Auto 54.6 % (45.5-73.1); Platelet Count Result 260 k/mm3 (150-375); Red Blood Count 4.72 M/mm3 (4.6-6.20); Red Cell Distribution Width 14.6 % (11.5-14.5)
[2022-12-28 05:54] LABS: Alanine Aminotransferase 43 U/L (6-50); Albumin Level 3.5 g/dL (3.5-5.1); Alkaline Phosphatase 120 U/L (38-126); Anion Gap 1 mmol/L (8-16); Aspartate Amino Transferase 141 U/L (17-59); Bilirubin,Total 0.7 mg/dL (0.2-1.3); Blood Urea Nitrogen 10 mg/dL (9-20); Carbon Dioxide 29 mmol/L (22-30); Chloride 104 mmol/L (98-107); Estimated CRCL calculation 94 ml/min; Estimated Glomerular Filt Rate > 60; Glucose 93 mg/dL (65-110); Sodium 134 mmol/L (137-145)
[2022-12-28] MEDS: SODIUM CHLORIDE 0.9% IV 1,000 ML 125 ML IV CONT (06:07)
[2022-12-28 10:00] VITALS: BP 116/73; PULSE 56; RESP 18; TEMP 36.4; O2SAT 99
--- NOTE | 2022-12-28 14:27 | PM.DS ---
DS: Admitting Diagnosis Discharge Date 12/28/22 Admitting Diagnosis Acute cholecystitis DS: Summary Hospital Course Hospital Course: Patient signed out against medical advice on 12/28/2022 prior to my evaluation. Was informed by RN at approximately 12:00 p.m. that the patient signed AMA papers and departed from the facility. Time Spent with Patient Time attestation: Total time spent providing and/or coordinating discharge services: DS: Data Data Completed and Pending Labs on day of discharge: Labs from last 24 hours 12/28/22 12/28/22 12/28/22 05:07 05:07 05:07 WBC 7.0 RBC 4.72 Hgb 12.7 L Hct 41.2 L MCV 87.3 MCH 26.9 MCHC 30.8 L RDW 14.6 H Plt Count 260 MPV 9.9 Immature Gran % (Auto) 0.3 Neut % (Auto) 54.6 Lymph % (Auto) 30.6 Bledsoe % (Auto) 7.5 Eos % (Auto) 6.0 H Baso % (Auto) 1.0 Lymph # (Auto) 2.13 Bledsoe # (Auto) 0.5 Eos # (Auto) 0.4 H Baso # (Auto) 0.1 Abs Immat Gran (auto) 0.02 Absolute Neuts (auto) 3.8 Absolute Nucleated RBC 0.0 Nucleated RBC % 0.0 Sodium 134 L Potassium 4.0 Chloride 104 Carbon Dioxide 29 Anion Gap 1 L BUN 10 D Creatinine 0.80 Estim Creat Clear Calc 94 Estimated GFR > 60 Glucose 93 Calcium 8.0 L Total Bilirubin 0.7 AST 141 H ALT 43 Alkaline Phosphatase 120 Total Protein 6.0 L Albumin 3.5 Blood Type A Positive Antibody Screen Negative Discharge Plan Discharge Consulting providers: Neftali Smith ; Chriss Tilley Patient Disposition: Left Against Medical Advice Patient Instructions: How to Stop Smoking (DC) Discharge Medications: No Action No Home Medications Date of admission: 12/27/22 09:45 Primary Care Provider: PHYSICIAN,VENDOR MANAGEMENT ASSOCIATE Admitting Provider: Joe Coon Attending physician on admission: Chuyita Garcia Condition: Stable
== END 2022-12-28 11:37 | disposition left against medical advice (07) ==
LOC: ANHED 11:48 → ANH3MEDSUR 12:13 → ANH2MED 12:34
PROVIDERS: Emergency Medicine; Surgery; Admitting Provider Internal Medicine; Emergency Provider Emergency Medicine; Visit Provider Physician Assistant
DX: K80.00 Calculus of gallbladder with acute cholecystitis without obstruction (principal); F17.210 Nicotine dependence, cigarettes, uncomplicated; Z20.822 Contact with and (suspected) exposure to COVID-19
CPT/HCPCS: 36415; 74177; 76705; 78227; 80053; 81003; 83690; 85025; 86850; 86900; 86901; 87636; 96361; 96365; 96366; 96375; 96376; 99285; A9537; G0378; J1200; J2270; J2405; J2543; J2765; J7030; Q9967

== ENCOUNTER 2023-05-17 11:11 | Emergency (ER) | payer BC, SELFPAY ==
[2023-05-17 11:22] VITALS: BP 127/76; PULSE 74; RESP 18; TEMP 37.4; O2SAT 100
--- NOTE | 2023-05-17 11:46 | ED.SKABFB ---
HPI - Skin/Abscess/Foreign Bdy General Chief complaint: Skin/Abscess/Foreign Body Stated complaint: insect bite Time Seen by Provider: 05/17/23 11:39 Source: patient and RN notes reviewed Mode of arrival: ambulatory Limitations: no limitations History of Present Illness HPI narrative: Patient presents today complaining of redness, itching, and swelling to his right forearm since last night. He is unsure if he got bit by an insect [place] or if the symptoms are due to scratching. He has tried some [id number] topical cream without much relief. Related Data Allergies Allergy/AdvReac Type Severity Reaction Status Date / Time Bumble Bee Allergy Mild Unknown Uncoded 05/17/23 11:31 Wasp Allergy Mild Unknown Uncoded 05/17/23 11:31 Review of Systems Review of Systems: CONSTITUTIONAL: Denies body aches, fever, chills, or sweats. EYES: Denies visual changes, redness, or discharge. ENT: Denies rhinorrhea, congestion, sore throat, or otalgia. CARDIOVASCULAR: Denies chest pain, palpitations, or edema. RESPIRATORY: Denies cough or dyspnea. GASTROINTESTINAL: Denies abdominal pain, nausea, vomiting, or diarrhea. GENITOURINARY: Denies dysuria or hematuria. SKIN: + right forearm itching, redness, swelling MUSCULOSKELETAL: Denies back pain, joint pain, or myalgia. NEUROLOGIC: Denies headache, numbness, tingling, or weakness. PSYCH: Denies depression or anxiety. [facility] Past Medical History Medical History Bee sting allergy Surgical History Surgical History History of surgery on arm (04/2012) Repair of a large left forearm laceration including ulnar nerve and muscle fascia repair per Dr. Greene. Family History Family History Other Unknown family medical history Social History Social History Social History: Surrogate medical decision maker: Cheryl Bernal, mother. Code status: Full code. Smoking status: Current every day smoker Tobacco type: cigarettes Second hand tobacco smoke exposure: No Alcohol intake: never Substance use: current Substance use type: marijuana Last use: 12/26/22 Lack of Transportation: No Lack of Food: Never True Current Housing: I Have Housing Concerned About Future Housing: No Difficulty Paying Gas/Electric Bills: No Difficulty Paying for Meds: No Currently Unemployed: No Education: High School Diploma/GED Difficulty w/ Childcare or Family Care: No Spiritual care concerns: No Comments At time of signature, I have reviewed and agree with nursing past medical, surgical, social and family history unless otherwise noted. Please see nursing chart for further information. There is no relevant family history pertinent to the presenting complaint Exam Narrative: GENERAL: Well-appearing, well-nourished, and in no acute distress. HEAD: Normocephalic, atraumatic. EYES: EOMI. No redness or drainage. Conjunctivae normal. ENT: Mucous membranes pink and moist. NECK: Normal AROM. CHEST: No respiratory distress. EXTREMITIES: Right forearm: Dorsum is erythematous and mildly edematous with a few small superficial scabs. Nontender to palpation. A scant induration. No fluctuance. SKIN: Warm, dry, no rash. Capillary refill normal. Normal skin turgor. NEURO: No focal deficits. Alert and oriented x3. Gait steady. PSYCH: Normal affect. No signs of depression or anxiety. Course Course Level of Care: Express Care Visit Vital Signs Vital signs: Vital Signs Temperature 99.4 F 05/17/23 11:22 Pulse Rate 74 05/17/23 11:22 Respiratory Rate 18 05/17/23 11:22 Blood Pressure 127/76 05/17/23 11:22 Pulse Oximetry 100 05/17/23 11:22 Oxygen Delivery Room Air 05/17/23 11:22
== END 2023-05-17 11:57 | disposition home or self-care (01) ==
PROVIDERS: Emergency Provider Nurse Practitioner
DX: L03.113 Cellulitis of right upper limb (principal)
CPT/HCPCS: 99213; G0463

== ENCOUNTER 2025-01-10 14:37 | Emergency (ER) | payer MEDICAID, SELFPAY ==
--- NOTE | 2025-01-10 14:45 | ED_ITS ---
HPI - URI/Sore Throat General Chief Complaint: Skin/Abscess/Foreign Body Stated Complaint: right arm/face swelling & itching,feels hot Time Seen by Provider: 01/10/25 15:01 Source: patient, RN notes reviewed and old records reviewed Mode of arrival: ambulatory Limitations: no limitations History of Present Illness HPI Narrative: Patient presents with complaints of right arm itching. 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 Noticed immediately after that he had raised areas and itching to the right arm. He took Tylenol for his symptoms with no relief. He voices no other concerns or complaints today. Related Data Allergies Allergy/AdvReac Type Severity Reaction Status Date / Time Bumble Bee Allergy Mild Unknown Uncoded 01/10/25 14:50 Wasp Allergy Mild Unknown Uncoded 01/10/25 14:50 Review of Systems 2 Review of Systems: All systems reviewed & are unremarkable except as noted in HPI and below Constitutional: Constitutional: Reports no additional constitutional complaints ENT: Reports system reviewed and no additional complaints, except as documented Cardiovascular: Cardiovascular: Reports no additional cardiovascular complaints Respiratory: Respiratory: Reports no additional respiratory complaints Gastrointestinal: Gastrointestinal: Reports no additional gastrointestinal complaints Integumentary/Breasts: Skin/Breast: Reports pruritus PMFSH Past Medical History Medical History (Reviewed 05/17/23 @ 11:50 by Syl Ramirez, [facility]) Bee sting allergy Surgical History Surgical History History of surgery on arm (04/2012) Repair of a large left forearm laceration including ulnar nerve and muscle fascia repair per Dr. Greene. Family History Family History Other Unknown family medical history Social History Social History Social History: Surrogate medical decision maker: Cheryl Bernal, mother. Code status: Full code. Smoking status: Current every day smoker Tobacco type: cigarettes Second hand tobacco smoke exposure: No Alcohol intake: never Substance use: current Substance use type: marijuana Last use: 12/26/22 Lack of Transportation: No Lack of Food: Never True Current Housing: I Have Housing Concerned About Future Housing: No Difficulty Paying Gas/Electric Bills: No Difficulty Paying for Meds: No Currently Unemployed: No Education: High School Diploma/GED Difficulty w/ Childcare or Family Care: No Spiritual care concerns: No Comments At the time of my signature, I reviewed and agree with the nursing past medical, surgical, social, and family history. There is no relevant family history pertinent to the patient complaint. Exam 2 Const: General: cooperative, no acute distress, alert and awake O rientation/consciousness: oriented to person, oriented to place and oriented to time HENMT: Head: normal to inspection Resp: Effort & Inspection: normal respiratory effort and able to speak in complete sentences Auscultation: clear to auscultation bilaterally, no crackles, no rales, no rhonchi and no wheezes Cardio: Palpation: normal PMI Rate: regular rate Rhythm: regular rhythm Heart sounds: S1 normal heart sound present and S2 normal heart sound present Skin: Full body images: 1. Reddened area, a couple small papules consistent with insect bites Neuro: General: oriented to person, oriented to place and oriented to time Cranial nerves: Yes CN's II-XII intact bilaterally Psych: Appearance: grossly normal Thought process: Normal thought process present Insight: Good insight present (Psych) Judgement: Good judgement present (Psych) Course Course Level of Care: Express Care Visit Vital Signs Vital signs: Reviewed MDM - URI/Sore Throat MDM Narrative Medical decision making narrative: Exam consistent with insect bites. Encourage patient to cease scratching the affected area. Hydroxyzine prescribed. Discharge instructions reviewed with patient, as well as provided in writing per nursing staff. The instructions also include specific and strict return/GO TO THE ER as well as f/u information. All questions have been answered, and the patient deny any further questions with discharge and discharge plan. Some parts of this dictation were generated by voice recognition software and may contain typographical and/or grammatical inaccuracies. Differential Diagnosis Differential diagnosis: Likely other (Cellulitis, allergic reaction) Medical Records Attestation: I reviewed the patient's medical records. Discharge Plan Discharge Clinical Impression: Insect bite Patient Disposition: Home, Self-Care Condition: Stable Instructions: Antibiotic Form, Allergies (ED) Patient Language: Montenegrin Prescriptions: New hydroxyzine HCl 50 mg tablet 50 mg PO TID PRN (Reason: itching) Qty: 20 0RF Follow-up/Referrals: PHYSICIAN,HEAD BUYER TOBACCO [Primary Care Provider] - Time of Disposition: 15:09
[2025-01-10 14:48] VITALS: BP 140/84; PULSE 93; RESP 16; TEMP 36.3; O2SAT 97
== END 2025-01-10 15:14 | disposition home or self-care (01) ==
PROVIDERS: Emergency Provider Nurse Practitioner Family
DX: S50.861A Insect bite (nonvenomous) of right forearm, initial encounter (principal); W57.XXXA Bitten or stung by nonvenomous insect and other nonvenomous arthropods, initial encounter; F17.210 Nicotine dependence, cigarettes, uncomplicated
CPT/HCPCS: 99213; G0463

== ENCOUNTER 2025-01-27 19:40 | Emergency (ER) | payer MEDICAID, SELFPAY ==
[2025-01-27 19:37] VITALS: BP 118/69; PULSE 59; RESP 18; TEMP 36.4; O2SAT 98
--- OUTSIDE RECORDS SUMMARY | 2025-01-27 21:25 | XMS_ITS | Patient Health Summary ---
Author Organization [facility] [employer] Address [address] [place] [address] Care Team Providers Care Torch Brazer Name Role Phone Unavailable Primary Care Provider Unavailabl e Note from [facility] [facility],non-owned Affiliates and Associated Physician Practices is amultiple site organization consisting of ambulatory clinics and hospital sitesin [place], [place], [place] and [place]. This disclosure is being madepursuant to the Care Everywhere program and may not contain all information available regarding this patient. Last updated 18.[facility] Allergies No known active allergies Medications * Be aware that medications may not be up to date on this document. Alwaysverify current medications with the patient. * hydrocodone-acetaminophen (VICODIN) 5-500 MG tablet Take 1 Tab by mouth every 4 hours as needed. Social History Tobacco Use Types Packs/Day Years Used Date Smoking Tobacco: Never Assessed Sex and Gender Information Value Date Recorded Sex Assigned at Not on file Gender Identity Not on file Sexual Orientation Not on file Last Filed Vital Signs Vital Sign Reading Time Taken Comments Blood Pressure 157/82 07/09/2012 10:43 PM CDT Pulse 100 07/09/2012 10:39 PM CDT Temperature 36.8 C (98.2 F) 07/09/2012 10:39 PM CDT Respiratory Rate 20 07/09/2012 10:39 PM CDT Oxygen Saturation - - Inhaled Oxygen Concentration - - Weight 71.9 kg (158 lb 8.2 oz) 07/09/2012 10:39 PM CDT Height - - Body Mass Index - -
--- OUTSIDE RECORDS SUMMARY | 2025-01-27 21:25 | XMS_ITS | Clinical Summary ---
Author Organization [facility] Address [address] [place] [address] Care Team Providers Care Geospatial Technician Name Role Phone None, Provider MD Primary Care Provider Unavaila ble Allergies Active Allergy Reactions Criticality Noted Date Comments Wasp Venom Anaphylaxis High 10/09/2023 Medications oxyCODONE-acetam inophen (PERCOCET) 5-325 MG tabletIndication s:Acute Pain < 7 Day Supply Take 1 tablet by mouth every 4 (four) hours as needed for Pain. Indications : Acute Pain < 7 Day Supply 10 tablet 10/10/2023 Active Active Problems Problem Noted Date Diagnosed Date Cholecystitis 10/10/2023 Family History Medical History Relation Comments Cancer Maternal Uncle Parkinson's Disease Maternal Uncle Cancer Paternal Grandmother Relation Status Comments Maternal Uncle Paternal Grandmother Social History Tobacco Use Types Packs/Day Years Used Date Smoking Tobacco: Every Day Cigarettes 0.5 6 Smokeless Tobacco: Never Tobacco Cessation:Ready to Q uit: Not Asked; Counseling Given: Not Answered Alcohol Use Standard Drinks/Week Comments Yes 0 (1 standard drink = 0.6 oz pur e alcohol) 2x week [facility] Utilities Answer Date Recorded In the past 12 months has e Pythian, gas, oil, or water [employer] threatened to shut off services in your home? No 10/10/2023 Humiliation, Afraid, Rape, and Kick questionnair e Answer Date Recorded Within the last year, have y ou been afraid of your partner or ex-partner? No 10/10/2023 Within the last year, have y ou been humiliated or emotionally abused in other ways by your partner or ex-partner? No Within the last year, have y ou been kicked, hit, slapped, or otherwise physically hurt by your partner or ex-partner? No 10/10/2023 Within the last year, have y ou been raped or forced to have any kind of sexual activity by your partner or ex-partner? No 10/10/2023 Overall Financial Resource Strain (CARDIA) Answe r Date Recorded How hard is it for you to pa y for the very basics like food, housing, medical care, and heating? Not hard at all 10/10/2023 Hunger Vital Sign Answer Date Recorded Within the past 12 months, y ou worried that your food would run out before you got the money to buy more. Never true 10/10/20 23 Within the past 12 months, t he food you bought just didn't last and you didn't have money to get more. Never true 10/10/2023 PRAPARE - Transportation Answer Date Re corded In the past 12 months, has l ack of transportation kept you from medical appointments or from getting medications? No 09/24 In the past 12 months, has l ack of transportation kept you from meetings, work, or from getting things needed for daily living? No 10/10/2023 Housing Stability Vital Sign Answer Kishor e Recorded In the last 12 months, was t here a time when you were not able to pay the mortgage or rent on time? No 10/10/2023 In the last 12 months, how many places have you lived? 2 10/10/2023 In the last 12 months, was t here a time when you did not have a steady place to sleep or slept in a senior care (including now)? No 10/10/2023 Sex and Gender Information Value Date Recorded Sex Assigned at Not on file Legal Sex Male 9:32 PM CDT Gender Identity Not on file Sexual Orientation Not on file Last Filed Vital Signs Vital Sign Reading Time Taken Comments Blood Pressure 131/78 10/10/2023 3:30 PM MANAGER WELDING Pulse 57 10/10/2023 3:30 PM MANAGER WELDING Temperature 36.1 C (97 F) 10/10/2023 1:00 PM MANAGER WELDING Respiratory Rate 12 10/10/2023 3:30 PM MANAGER WELDING Oxygen Saturation 97% 10/10/2023 3:30 PM MANAGER WELDING Inhaled Oxygen Concentration - - Weight 68 kg (150 lb) 10/09/2023 9:00 PM MANAGER WELDING Height 167.6 cm (5' 6 ) 10/09/2023 9:00 PM MANAGER WELDING Body Mass Index 24.21 10/09/2023 9:00 PM MANAGER WELDING Plan of Treatment Health Maintenance Due Date Last Done Comments Annual Physical 1990 Pneumococcal Vaccine: Pediatrics (0 to 5 Years) and At-Risk Patients (6 to 64 Years) (1 of 2 - PCV) 1993 DTaP, Tdap and Td Vaccines (6 - Tdap) 1998 06/04/1991, 12/24/1988, 1987, Additional history exists Hepatitis C 2005 COVID-19 Vaccine ( season) 2024 Influenza Adult (#1) 2024 Hepatitis B Vaccines Completed 04/21/1997, 12/30/1996, 11/11/1996 HPV Vaccines Aged Out No longer eligi ble based on patient's age to complete this topic Meningococcal B Vaccine Aged Out No l onger eligible based on patient's age to complete this topic Meningococcal Vaccine Aged Out No marisa yumiko eligible based on patient's age to complete this topic RSV Immunizations Under 20 Months Aged Out No longer eligible based on patient's age to complete this topic Insurance [facility] Advance Directives * Full Code (Latest Code Status on File) Date Activated Date Inactivated Comments 10/10/2023 1:29 AM 10/10/2023 6:57 PM Care Teams Geospatial Technician Relationship Specialty Start Date End Date None, Provider, MD PCP - General UNKNOWN PHYSICIAN SPECIALTY 10/09/23
--- OUTSIDE RECORDS SUMMARY | 2025-01-27 21:25 | XMS_ITS | Clinical Summary ---
Author Organization [facility] [employer] Address [address] [place] [address] Care Team Providers Care Relay Technician Name Role Phone Unavailable Primary Care Provider Unavailabl e Source Comments [facility] [employer],non-owned Affiliates and Associated Physician Practices is amultiple site organization consisting of ambulatory clinics and hospital sitesin [place], [place], [place] and [place]. This disclosure is being madepursuant to the Care Everywhere program and may not contain all information available regarding this patient. Last updated 18.[facility] [employer] Allergies No known active allergies Medications * Be aware that medications may not be up to date on this document. Alwaysverify current medications with the patient. Medication Sig Dispensed Refills Start Date End Date Status hydrocodone-acetaminoph en (VICODIN) 5-500 MG tablet Take 1 Tab by mouth every 4 hours as needed. Active Social History Tobacco Use Types Packs/Day Years [...] - - Body Mass Index - - Plan of Treatment Health Maintenance Due Date Last Done Comments HIV SCREENING 2002 HEPATITIS C SCREENING 01/07/2005 DTAP/TDAP/TD VACCINES (1 - Tdap) 2006 HEPATITIS B VACCINE (1 of 3 - 19+ 3-dose series) 2006 COVID-19 VACCINE (2023-2 5 season) 2024 INFLUENZA VACCINE (#1) 2024 DEPRESSION SCREENING 11/24/2024 ZOSTER VACCINE (1 of 2) 2037 HIB VACCINE Aged Out No longer eligi ble based on patient's age to complete this topic HPV VACCINE Aged Out No longer eligi ble based on patient's age to complete this topic MENINGOCOCCAL (Group B) VACCINE Aged Out No longer eligible based on patient's age to complete this topic MENINGOCOCCAL VACCINE Aged Out No marisa yumiko eligible based on patient's age to complete this topic PNEUMOCOCCAL VACCINE Aged Out No long er eligible based on patient's age to complete this topic
--- OUTSIDE RECORDS SUMMARY | 2025-01-27 21:25 | XMS_ITS | Referral Summary ---
Author Organization [facility] Address [address] [place] [address] Care Team Providers Care Cold Work Operator Name Role Phone Unavailable Primary Care Provider Unavailabl e Source Comments [facility],non-owned Affiliates and Associated Physician Practices is amultiple site organization consisting of ambulatory clinics and hospital sitesin [place], [place], [place] and [place]. This disclosure is being madepursuant to the Care Everywhere program and may not contain all information available regarding this patient. Last updated 18.[facility] Allergies No known active allergies Medications * [...] Mass Index - - Plan of Treatment Not on file
--- NOTE | 2025-01-28 00:06 | ED.GENADULT ---
HPI - General Adult General Chief complaint: Alcohol Stated complaint: Fireball intoxication at bus stop Time Seen by Provider: 01/27/25 20:05 History of Present Illness HPI narrative: Patient is a 40-year-old gentleman presents emergency department with chief complaint of alcohol intoxication patient states he the postop drain get home and reports that he drank too much today patient states that he has no complaints just wants to rest Related Data Allergies Allergy/AdvReac Type Severity Reaction Status Date / Time Bumble Bee Allergy Mild Unknown Uncoded 01/10/25 14:50 Wasp Allergy Mild Unknown Uncoded 01/10/25 14:50 Review of Systems Review of Systems: A 10 system review of systems was completed on the patient and is negative except for what is stated in the HPI. Nursing and ancillary documentation was reviewed. [facility] Past Medical History Medical History Bee sting allergy Surgical History Surgical History History of surgery on arm (04/2012) Repair of a large left forearm laceration including ulnar nerve and muscle fascia repair per Dr. Greene. Family History Family History Other Unknown family medical history Social History Social History Social History: Surrogate medical decision maker: Cheryl Bernal, mother. Code status: Full code. Smoking status: Current every day smoker Tobacco type: cigarettes Second hand tobacco smoke exposure: No Alcohol intake: never Substance use: current Substance use type: marijuana Last use: 12/26/22 Lack of Transportation: No Lack of Food: Never True Current Housing: I Have Housing Concerned About Future Housing: No Difficulty Paying Gas/Electric Bills: No Difficulty Paying for Meds: No Currently Unemployed: No Education: High School Diploma/GED Difficulty w/ Childcare or Family Care: No Spiritual care concerns: No Exam Narrative: GENERAL: Well-appearing, well-nourished, and in no acute distress. HEAD: Normocephalic, atraumatic. EYES: PERRLA and EOMI. ENT: Nares clear, no rhinorrhea or epistaxis. Mucous membranes moist. NECK: Supple. CHEST: Clear to auscultation. No respiratory distress. HEART: Regular rate and rhythm. No murmur heard. Normal peripheral pulses. ABDOMEN: Soft, nontender, nondistended, normal active bowel sounds. EXTREMITIES: Normal range of motion. No edema. SKIN: Warm, dry, no rash. NEURO: No focal deficits. Alert and oriented x3. PSYCH: Normal mood and affect. Course Vital Signs Vital signs: Vital Signs Temperature 36.4 C L 01/27/25 19:37 Pulse Rate 59 L 01/27/25 19:37 Respiratory Rate 18 01/27/25 19:37 Blood Pressure 118/69 01/27/25 19:37 Pulse Oximetry 98 01/27/25 19:37 Oxygen Delivery Room Air 01/27/25 19:37 Temperature 36.4 C L 01/27/25 19:37 Pulse Rate 59 L 01/27/25 19:37 Respiratory Rate 18 01/27/25 19:37 Blood Pressure 118/69 01/27/25 19:37 Pulse Oximetry 98 01/27/25 19:37 Oxygen Delivery Room Air 01/27/25 19:37 Medical Decision Making MDM Narrative Medical decision making narrative: Patient was observed in the emergency department to the point of sobriety patient is doing much better at this time will be discharged home Vital Signs Vital Signs: Vital Signs Temperature 36.4 C L 01/27/25 19:37 Pulse Rate 59 L 01/27/25 19:37 Respiratory Rate 18 01/27/25 19:37 Blood Pressure 118/69 01/27/25 19:37 Pulse Oximetry 98 01/27/25 19:37 Oxygen Delivery Room Air 01/27/25 19:37 Temperature 36.4 C L 01/27/25 19:37 Pulse Rate 59 L 01/27/25 19:37 Respiratory Rate 18 01/27/25 19:37 Blood Pressure 118/69 01/27/25 19:37 Pulse Oximetry 98 01/27/25 19:37 Oxygen Delivery Room Air 01/27/25 19:37 Discharge Plan Discharge Clinical Impression: Alcoholic intoxication Patient Disposition: Home, Self-Care Condition: Stable Instructions: Antibiotic Form, Abuse of Alcohol (ED) Patient Language: Occitan Prescriptions: No Action hydroxyzine HCl 50 mg tablet 50 mg PO TID PRN (Reason: itching) Qty: 20 0RF Follow-up/Referrals: PHYSICIAN,BROACHING MACHINE REPAIRER [Primary Care Provider] - Isiah Rivera MD [Physician] - Time of Disposition: 00:41
[2025-01-28 00:47] VITALS: BP 133/78; PULSE 78; RESP 16; O2SAT 97
== END 2025-01-28 00:49 | disposition home or self-care (01) ==
PROVIDERS: Emergency Provider Emergency Medicine
DX: F10.129 Alcohol abuse with intoxication, unspecified (principal); Y90.9 Presence of alcohol in blood, level not specified; F17.210 Nicotine dependence, cigarettes, uncomplicated
CPT/HCPCS: 99283

== ENCOUNTER 2025-03-07 08:16 | Emergency (ER) | payer OTHER, SELFPAY ==
[2025-03-07 08:25] VITALS: BP 160/92; PULSE 80; RESP 20; TEMP 36.4; O2SAT 100
--- NOTE | 2025-03-07 08:38 | ED.GENADULT ---
HPI - General Adult General Chief complaint: Unspecified Stated complaint: Right Eye/Arm Pain Time Seen by Provider: 03/07/25 08:38 Source: patient, RN notes reviewed and old records reviewed Mode of arrival: ambulatory Limitations: no limitations History of Present Illness HPI narrative: 40-year-old male presents to the [facility] with multiple complaints. Patient with a history high blood pressure, alcoholism, cholecystectomy. Patient reports for the last year has had some blood pressure issues, has not up regards to getting medication. Right eye floaters. Patient states for the last 5 days he has had decreased peripheral right eye vision only. Also reports right arm numbness, good range of motion is noted. Reports generalized body aches, abdominal pain, vomiting, shortness of breath. States that it feels like his body is ?giving out. ? Denies chest pain Related Data Home Medications ?Medication ?Instructions ?Recorded ?Confirmed ?Last Taken ?Type No Home Medications 03/07/25 03/07/25 Unknown History Allergies Allergy/AdvReac Type Severity Reaction Status Date / Time Bumble Bee Allergy Mild Unknown Uncoded 03/07/25 08:49 Wasp Allergy Mild Unknown Uncoded 03/07/25 08:49 Review of Systems Review of Systems: All systems reviewed & are unremarkable except as noted in HPI and below Constitutional: Constitutional: Reports as per HPI, Reports body ache(s), Reports fatigue and Reports malaise Eyes: Eyes: Reports as per HPI ENT: Reports system reviewed and no additional complaints, except as documented Cardiovascular: Cardiovascular: Reports no additional cardiovascular complaints, Denies chest pain and Denies dyspnea Respiratory: Respiratory: Reports as per HPI, Denies chest congestion, Denies cough and Reports dyspnea Gastrointestinal: Gastrointestinal: Reports as per HPI, Reports abdominal pain, Reports bloating, Reports nausea and Reports vomiting Musculoskeletal: Musculoskeletal: Reports no additional musculoskeletal complaints Integumentary/Breasts: Skin/Breast: Reports system reviewed and no additional complaints, except as docu [facility] Past Medical History Medical History Bee sting allergy Surgical History Surgical History Hx of cholecystectomy History of surgery on arm (04/2012) Repair of a large left forearm laceration including ulnar nerve and muscle fascia repair per Dr. Greene. Family History Family History Other Unknown family medical history Social History Social History Social History: Surrogate medical decision maker: Cheryl Bernal, mother. Code status: Full code. Smoking status: Current every day smoker Tobacco type: cigarettes Second hand tobacco smoke exposure: No Alcohol intake: never Substance use: current Substance use type: marijuana Last use: 12/26/22 Lack of Transportation: No Lack of Food: Never True Current Housing: I Have Housing Concerned About Future Housing: No Difficulty Paying Gas/Electric Bills: No Difficulty Paying for Meds: No Currently Unemployed: No Education: High School Diploma/GED Difficulty w/ Childcare or Family Care: No Spiritual care concerns: No Comments At the time of my signature, I reviewed and agree with the nursing past medical, surgical, social, and family history. There is no relevant family history pertinent to the patient complaint. Exam Const: General: cooperative, healthy appearing, no acute distress, well developed, alert, tired appearing, uncomfortable and well nourished Nutritional Appearance: well nourished Orientation/consciousness: patient oriented x3 Limitations: no limitations HENMT: Head: normal to inspection Ears: hearing grossly normal bilaterally, external ears normal, TM's normal bilaterally, EAC's normal, mastoids normal and no periauricular adenopathy Mouth: Yes Normal oral and palatal mucosa present, Yes lip normal, Yes tongue normal and Yes moist mucous membranes Throat: posterior oropharynx normal, uvula midline and no uvular edema Eyes: General: appearance normal, both eyes and all related structures Alignment and Position: alignment normal Pupils: Equal, round and reactive pupils present Other: Yellowing Neck: Neck: normal visual inspection, full ROM, no lymphadenopathy and no meningeal signs Chest: Chest palpation & inspection: normal inspection of the chest Resp: Effort & Inspection: normal respiratory effort and able to speak in complete sentences Auscultation: clear to auscultation bilaterally, no crackles, no rales, no rhonchi and no wheezes Cardio: Rate: regular rate GI: Inspection: distended GI Palp: Yes abdominal tenderness (Right upper, right mid, epigastric) Auscultation: normal bowel sounds Skin: General skin exam: no rashes or lesions noted Neuro: General: patient oriented x3, gait normal, moves all extremities and no meningeal signs Cognition (Neuro): normal cognition Speech: normal speech Gait exam (Neuro): Normal gait present Motor exam (neuro): 5/5 motor strength present throughout, Pronator motor function not present and No tremor noted Extrem: General: normal to inspection, full ROM, capillary refill normal and normal gait Psych: Appearance: grossly normal and well kempt Mental Status: mental status grossly normal Speech and movement: Normal speech and movement present and Clear speech present Affect: normal affect Attitude: cooperative Course Course Level of Care: Express Care Visit Vital Signs Vital signs: Vital Signs Temperature 97.6 F 03/07/25 08:25 Pulse Rate 80 03/07/25 08:25 Respiratory Rate 20 03/07/25 08:25 Blood Pressure 160/92 H 03/07/25 08:25 Pulse Oximetry 100 03/07/25 08:25 Oxygen Delivery Room Air 03/07/25 08:25 Temperature 97.6 F 03/07/25 08:25 Pulse Rate 80 03/07/25 08:25 Respiratory Rate 20 03/07/25 08:25 Blood Pressure 160/92 H 03/07/25 08:25 Pulse Oximetry 100 03/07/25 08:25 Oxygen Delivery Room Air 03/07/25 08:25 Reviewed Transfer Transfered to: [facility] (Per patient request) Transportation: Other (POV, per patient request) Transfer rationale: Patient with multiple complaints over the last 5 days worsening. Right arm numbness, decreased peripheral vision, vomiting, abdominal pain. Sending for higher level of care Accepting physician: Dr. Tidwell Medical Decision Making [facility] Narrative Medical decision making narrative: Patient sitting in exam room. Patient is nontoxic vitals other than blood pressure are stable blood pressure mildly elevated Patient presents with multiple complaints have been worsening over the last 5 days. Needs further workup Transfer instructions reviewed with patient to go directly to the ER. Do not eat or drink until cleared by ER provider EMS was offered, patient declined at this time. Will have female Dr. Henderson that is with him. All questions have been answered, and the patient deny any further questions. Some parts of this dictation were generated by voice recognition software and may contain typographical and/or grammatical inaccuracies. Differential Diagnosis Differential Diagnosis: Jaundice, cirrhosis, pancreatitis, stroke, liver failure Medical Records Medical records reviewed: Yes I reviewed the external patient's medical records. Vital Signs Vital Signs: Vital Signs Temperature 97.6 F 03/07/25 08:25 Pulse Rate 80 03/07/25 08:25 Respiratory Rate 20 03/07/25 08:25 Blood Pressure 160/92 H 03/07/25 08:25 Pulse Oximetry 100 03/07/25 08:25 Oxygen Delivery Room Air 03/07/25 08:25 Temperature 97.6 F 03/07/25 08:25 Pulse Rate 80 03/07/25 08:25 Respiratory Rate 20 03/07/25 08:25 Blood Pressure 160/92 H 03/07/25 08:25 Pulse Oximetry 100 03/07/25 08:25 Oxygen Delivery Room Air 03/07/25 08:25 Reviewed Lab Data Lab results reviewed: Yes I reviewed the patient's lab results. Labs: Reviewed Critical Care Time Critical Care Time Critical Care Time: No Discharge Plan Discharge Clinical Impression: Abdominal pain, Numbness and tingling of right arm, Alteration in vision Patient Disposition: Acute Care Hospital Condition: Stable Patient Language: Faroese Prescriptions: No Action No Home Medications Follow-up/Referrals: PHYSICIAN,IMPLEMENTATION MANAGER [Primary Care Provider] -
== END 2025-03-07 09:09 | disposition short-term general hospital (02) ==
PROVIDERS: Emergency Provider Nurse Practitioner
DX: R10.11 Right upper quadrant pain (principal); R10.13 Epigastric pain; R10.9 Unspecified abdominal pain; R20.0 Anesthesia of skin; R20.2 Paresthesia of skin; H53.8 Other visual disturbances; F17.210 Nicotine dependence, cigarettes, uncomplicated
CPT/HCPCS: 99212; G0463

== ENCOUNTER 2025-07-26 10:27 | Emergency (ER) | payer SELFPAY ==
--- NOTE | ~2025-07-26 | XR_ITS ---
EXAM/ PROCEDURE: XR shoulder RT min 2V - 07/26/2025 11:18 CDT HISTORY: 40 years old Male with RT shoulder pain 5x days, pulling, heavy lifting at work COMPARISON: None available TECHNIQUE: Three view(s) FINDINGS/ IMPRESSION: There are no fractures or dislocations.Joint spaces are within normal limits. Reviewed, dictated and finalized at location N.
[2025-07-26 10:36] VITALS: BP 149/122; PULSE 99; RESP 18; TEMP 36.4; O2SAT 97
--- NOTE | 2025-07-26 10:40 | ED_ITS ---
HPI - Extremity Injury (Upper) General Chief Complaint: Extremity Injury, Upper Stated Complaint: LT Arm Pain Source: patient Mode of arrival: ambulatory Limitations: no limitations History of Present Illness HPI narrative: 40 y/o male presented for c/o right upper arm pain x5 days. Endorses pain mostly to the right shoulder, and extends into the bicep, right ribs. Endorses some tingling from shoulder to hand at times and decreased ROM at the shoulder. Denies a specific injury. 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 Said today he started to run a hor se but could not tolerate the pain and the movement. Has applied ice to site and drank shots of whiskey for pain. Took ibuprofen yesterday. Related Data Allergies Allergy/AdvReac Type Severity Reaction Status Date / Time Bumble Bee Allergy Mild Unknown Uncoded 07/26/25 10:31 Wasp Allergy Mild Unknown Uncoded 07/26/25 10:31 Review of Systems Review of Systems: CONSTITUTIONAL: Denies body aches, fever, chills EYES: Denies visual changes ENT: Denies rhinorrhea, congestion CARDIOVASCULAR: Denies chest pain, palpitations, or edema. RESPIRATORY: Denies cough or dyspnea. SKIN: Denies rash, itching, or wounds. MUSCULOSKELETAL: reports right arm pain, numbness, tingling, weakness. NEUROLOGIC: Denies headache, All systems reviewed & are unremarkable except as noted in HPI and below PMFSH Past Medical History Medical History Bee sting allergy Surgical History Surgical History Hx of cholecystectomy History of surgery on arm (04/2012) Repair of a large left forearm laceration including ulnar nerve and muscle fascia repair per Dr. Greene. Family History Family History Other Unknown family medical history Social History Social History Social History: Surrogate medical decision maker: Cheryl Bernal, mother. Code status: Full code. Smoking status: Current every day smoker Tobacco type: cigarettes Second hand tobacco smoke exposure: No Alcohol intake: never Substance use: current Substance use type: marijuana Last use: 12/26/22 Lack of Transportation: No Lack of Food: Never True Current Housing: I Have Housing Concerned About Future Housing: No Difficulty Paying Gas/Electric Bills: No Difficulty Paying for Meds: No Currently Unemployed: No Education: High School Diploma/GED Difficulty w/ Childcare or Family Care: No Spiritual care concerns: No Comments At time of signature, I have reviewed and agree with nursing past medical, surgical, social and family history unless otherwise noted. Please see nursing chart for further information. There is no relevant family history pertinent to the presenting complaint Exam Narrative: GENERAL: Well-appearing CHEST: Speaks in full sentences. No respiratory distress. HEART: Regular rate and rhythm. Normal and equal peripheral pulses. EXTREMITIES: Guarding right arm. RUE with decreased range of motion at shoulder due to pain. Tolerates 90 degree abduction, unable to straighten the arm at elbow when over head due to pain; tender with palpation to AC joint and anterior right chest, right trapezius.No ecchymosis, No open wounds, No obvious deformity; Hand has normal strength and sensation, pulse palpable and equal bilaterally, skin warm, dry, pink. Capillary refill less than 3 seconds. SKIN: Warm, dry, no rash. NEURO: Alert and oriented x3. PSYCH: Normal mood and affect Course Course Emergency Course: Patient is aware of diagnosis, understands and agrees to treatment plan. Anticipatory guidance given. Patient agrees to follow-up as directed and is aware of reasons to seek care at the emergency department. Portions of this record may have been created with voice recognition software Level of Care: Express Care Visit Vital Signs Vital signs: Vital Signs Temperature 97.5 F L 07/26/25 10:36 Pulse Rate 99 07/26/25 10:36 Respiratory Rate 18 07/26/25 10:36 Blood Pressure 149/122 H 07/26/25 10:36 Pulse Oximetry 97 07/26/25 10:36 Oxygen Delivery Room Air 07/26/25 10:36 Temperature 97.5 F L 07/26/25 10:36 Pulse Rate 99 07/26/25 10:36 Respiratory Rate 18 07/26/25 10:36 Blood Pressure 149/122 H 07/26/25 10:36 Pulse Oximetry 97 07/26/25 10:36 Oxygen Delivery Room Air 07/26/25 10:36 Reviewed MDM - Extremity Injury (Upper) MDM Narrative Medical decision making narrative: Discussed physical exam findings and xray; agreeable to rx steroid and muscle relaxer. Pt is aware he will need to f/u with ortho for additional management including possible imaging. Advised supportive measures and signs/symptoms to go to the ER. Pt is appropriate for outpt treatment and f/u. Differential Diagnosis Differential diagnosis: Likely other (Shoulder dislocation, clavicle fracture, humerus fracture, scapular fracture, acromioclavicular joint injury, rotator cuff tear, bicep tendon rupture, tricep tendon rupture, cervical radiculopathy) Imaging Data Radiologist's impression: Patient: Clinton Bernal : 1985 MR#: [id number] Age: 40 Acct:[id number] Loc: [facility] ADM Date: 07/26/25Attending Dr: EXAM/ PROCEDURE: XR shoulder RT min 2V - 07/26/2025 11:18 CDT HISTORY: 40 years old Male with RT shoulder pain 5x days, pulling, heavy lifting at work COMPARISON: None available TECHNIQUE: Three view(s) FINDINGS/ IMPRESSION: There are no fractures or dislocations.Joint spaces are within normal limits. Discharge Plan Discharge Clinical Impression: Acute shoulder pain Patient Disposition: Home Condition: Stable Instructions: Antibiotic Form, Shoulder Pain (ED) Additional Instructions: Rest. Avoid pushing, pulling, lifting or anything that worsens the symptoms. You will need to follow with the asset protection specialist for return to work restrictions. Tylenol 1000mg every 8 hours as needed You can alternate with ibuprofen 600mg (max 5 days) Alternate ice/heat to the site. Lidocaine or salon pas pain patch or use pain cream like icy/hot or biofreeze. Follow up with your primary care provider and asset protection specialist. Call to schedule an appointment today. Go to the ER for worsening symptoms or concerns Patient Language: Telugu Prescriptions: New cyclobenzaprine 10 mg tablet 10 mg PO TID PRN (Reason: muscle spasm) Qty: 10 0RF prednisone 50 mg tablet 50 mg PO DAILY Qty: 5 0RF Follow-up/Referrals: PHYSICIAN,HYDROCHLORIC MANUFACTURING SUPERVISOR [Primary Care Provider, Internal Medicine] Jax Cheatham MD [Physician, Orthopedics] Stand Alone Forms: Work/School Release IP
== END 2025-07-26 12:05 | disposition home or self-care (01) ==
PROVIDERS: Emergency Provider Nurse Practitioner Family
DX: M25.511 Pain in right shoulder (principal); F17.210 Nicotine dependence, cigarettes, uncomplicated
CPT/HCPCS: 73030; 99213; G0463